=== PATIENT | female | born 1955 | race Caucasian/White ===

== ENCOUNTER 2017-04-16 10:48 | Day surgery (SDC) | payer OTHER ==
[~2017-04-16] VITALS: Ht 157.5 cm; Wt 57.7 kg
[2017-04-16] MEDS ORDERED: zyrtec (11:16)
[2017-04-16] MEDS ORDERED: omeprazole (11:16)
[2017-04-16 11:18] VITALS: Ht 157.5 cm; Wt 57.7 kg
[2017-04-16 11:41] VITALS: BP 154/76; PULSE 87; RESP 15
--- NOTE | 2017-04-16 12:22 | OPPN ---
Date/Time of Note Date/Time of Note DATE: 04/16/17 TIME: 12:21 Operative Report Preoperative Diagnosis Abdominal pain Chronic heartburn Screening colonoscopy Postoperative Diagnosis Gastroesophageal reflux disease Gastritis Internal hemorrhoids No colon neoplasm was identified Operation/Procedure Performed Esophagogastroduodenoscopy and biopsy Colonoscopy Surgeon see signature line cancer genetics assistant None Anesthesia: moderate sedation Estimated blood loss: none Transfusion Required none Specimen Gastric mucosal bath Grafts/Implants none Complications none AMARA DAVIS MD Apr 16, 2017 12:22
--- NOTE | 2017-04-16 12:22 | OPPN ---
Date/Time of Note Date/Time of Note DATE: 04/16/17 TIME: 12:21 Operative Report Preoperative Diagnosis Abdominal pain Chronic heartburn Screening colonoscopy Postoperative Diagnosis Gastroesophageal reflux disease Gastritis Internal hemorrhoids No colon neoplasm was identified Operation/Procedure Performed Esophagogastroduodenoscopy and biopsy Colonoscopy Surgeon see signature line family services assistant None Anesthesia: moderate sedation Estimated blood loss: none Transfusion Required none Specimen Gastric mucosal bath Grafts/Implants none Complications none AMARA DAVIS MD Apr 16, 2017 12:22
--- NOTE | 2017-04-16 12:22 | OPPN ---
Date/Time of Note Date/Time of Note DATE: 04/16/17 TIME: 12:21 Operative Report Preoperative Diagnosis Abdominal pain Chronic heartburn Screening colonoscopy Postoperative Diagnosis Gastroesophageal reflux disease Gastritis Internal hemorrhoids No colon neoplasm was identified Operation/Procedure Performed Esophagogastroduodenoscopy and biopsy Colonoscopy Surgeon see signature line executive staff assistant None Anesthesia: moderate sedation Estimated blood loss: none Transfusion Required none Specimen Gastric mucosal bath Grafts/Implants none Complications none AMARA DAVIS MD Apr 16, 2017 12:22
[2017-04-16] MEDS ORDERED: FENTAnyl 50 MCG/ML VIAL ONE (12:43)
[2017-04-16] MEDS ORDERED: MIDAZOLAM 1 MG/ML 2 ML INJ ONE ×3 (12:43)
[2017-04-16 12:53] VITALS: BP 141/64; PULSE 80; RESP 19
--- NOTE | 2017-04-16 14:41 | GILP ---
DATE OF PROCEDURE: NAME OF PROCEDURES: 1. Esophagogastroduodenoscopy and biopsy. 2. Colonoscopy. SURGEON: Amara Frank MD PREOPERATIVE DIAGNOSIS: 1. Abdominal pain. 2. Chronic heartburn. 3. Screening colonoscopy. POSTOPERATIVE DIAGNOSES: 1. Gastroesophageal reflux disease. 2. Gastritis with erosions. 3. Gastric mucosal biopsies were taken for Helicobacter pylori test. 4. Colonoscopy all the way to the cecum. 5. Internal hemorrhoids. 6. No colon neoplasm was identified. INDICATION FOR THE PROCEDURE: Ms. Ana María Barbosa is a 61-year-old female patient who had upper abd ominal pain and chronic heartburn, not responding to therapy. The patient also needed screening col onoscopy. The procedures and possible complications are well explained to the patient. The patient understood and consented to the procedure. DESCRIPTION OF PROCEDURE: Under the influence of fentanyl and Versed, the gastroscope was carefully introduced into the esophagus and under direct vision, it was advanced to the stomach and through t he pylorus into the duodenal bulb and descending duodenum. FINDINGS: ESOPHAGUS: The patient had gastroesophageal reflux disease. STOMACH: She had gastritis with erosions. Gastric mucosal biopsies were taken for H. pylori test. DUODENUM: Normal. The colonoscope was carefully introduced in the rectum and under direct vision it was advanced all t he way to the cecum. FINDINGS: The patient had internal hemorrhoids. No colon neoplasm was identified. The patient tolerated the procedure very well and there was no complication from the procedure. At the end of the procedures, she was awake with stable vital signs and she was discharged home to the care of her family. IMPRESSION: Please see postoperative diagnoses. PLAN: 1. Omeprazole 40 mg p.o. q.a.m. 2. Zantac 300 mg p.o. at bedtime. 3. Await H. pylori test report. 4. Screening colonoscopy in 10 years. Dictated By: AMARA CARMONA/CALVIN Conf#: [id number] DID#: [id number]
== END 2017-04-16 13:35 | disposition home or self-care (01) ==
LOC: GIL 10:48
PROVIDERS: ATTEND Internal Medicine Gastroenterology
DX: Z12.11 Encounter for screening for malignant neoplasm of colon (principal); K64.8 Other hemorrhoids; K21.9 Gastro-esophageal reflux disease without esophagitis; K29.70 Gastritis, unspecified, without bleeding
CPT/HCPCS: 43239; 45378; 88305; 88312; J2250; J3010